=== PATIENT | male | born 1975 ===

== ENCOUNTER 2019-07-12 18:42 | Emergency (ER) | payer BC ==
[2019-07-12 19:35] VITALS: BP 139/93
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
== END 2019-07-12 20:12 | disposition home or self-care (01) ==
LOC: UCCORT 18:42
DX: M95.0 Acquired deformity of nose (principal); M54.5 Low back pain; E11.9 Type 2 diabetes mellitus without complications; Z79.84 Long term (current) use of oral hypoglycemic drugs; E78.5 Hyperlipidemia, unspecified; I10 Essential (primary) hypertension; M10.9 Gout, unspecified
CPT/HCPCS: 99202; G0463